=== PATIENT | male | born 1975 | race Hispanic/Latino ===

== ENCOUNTER 2017-09-20 14:41 | Emergency (ER) | payer SELFPAY ==
[2017-09-20 15:15] LABS: APPEARANCE,URINE Clear (CLEAR); BILIRUBIN,URINE Negative (NEGATIVE); COLOR,URINE Yellow (YELLOW); GLUCOSE, URINE (UA) Negative (NEGATIVE); KETONES,URINE Negative (NEGATIVE); LEUKOCYTE ESTERASE ,URINE Large (NEGATIVE); NITRATE,URINE Negative (NEGATIVE); OCCULT BLOOD,URINE Moderate (NEGATIVE); PROTEIN,URINE Negative (NEGATIVE)
[2017-09-20 15:35] LABS: BACTERIA,URINE Few /HPF (None Seen); WBC,URINE 51-100 /HPF (0-1)
[2017-09-20] MEDS ORDERED: AZITHROMYCIN 250 MG TABLET PO ONE (15:59)
[2017-09-20] MEDS ORDERED: CEFTRIAXONE SODIUM 1 GM ONE (15:59)
== END 2017-09-20 16:30 | disposition home or self-care (01) ==
LOC: EDH 14:41
DX: N30.00 Acute cystitis without hematuria (principal)
CPT/HCPCS: 81001; 87486; 87797; 96372; 99284; J0696

== ENCOUNTER 2019-08-21 22:04 | Emergency (ER) | payer OTHER ==
[2019-08-21] MEDS ORDERED: KETOROLAC TROMETHAMINE 60 MG/2 ML VIAL ONE (23:27)
[2019-08-21] MEDS ORDERED: DEXAMETHASONE SOD PHOSPHATE 10MG/ML 1ML VIAL ONE (23:27)
== END 2019-08-21 23:53 | disposition home or self-care (01) ==
LOC: EDH 22:04
DX: M54.42 Lumbago with sciatica, left side (principal); M54.41 Lumbago with sciatica, right side
CPT/HCPCS: 82948; 99282; J1100; J1885

== ENCOUNTER 2020-10-24 08:59 | Emergency (ER) | payer SELFPAY ==
[2020-10-24 09:45] LABS: APPEARANCE,URINE Cloudy (CLEAR); BILIRUBIN,URINE Negative (NEGATIVE); COLOR,URINE Yellow (YELLOW); GLUCOSE, URINE (UA) Negative (NEGATIVE); KETONES,URINE Negative (NEGATIVE); LEUKOCYTE ESTERASE ,URINE Large (NEGATIVE); NITRATE,URINE Negative (NEGATIVE); OCCULT BLOOD,URINE Nonhemolyzed Trace (NEGATIVE); PROTEIN,URINE Negative (NEGATIVE)
[2020-10-24 10:06] LABS: BACTERIA,URINE Rare /HPF (None Seen); RBC,URINE 0-1 /HPF (0-1); WBC,URINE 26-50 /HPF (0-1)
[2020-10-24 10:07] LABS: SQUAMOUS EPITHELIAL CELL,UR 0-2 /HPF (0-2)
[2020-10-24] MEDS ORDERED: CEFTRIAXONE SODIUM 1 GM ONE (10:40)
[2020-10-24] MEDS ORDERED: LIDOCAINE HCL-MPF 1% 2ML VIAL ONE (10:40)
[2020-10-24] MEDS ORDERED: AZITHROMYCIN 250 MG TABLET PO ONE (10:41)
[2020-10-24] MEDS ORDERED: ONDANSETRON ODT 4 MG TAB ONE (10:41)
== END 2020-10-24 11:20 | disposition home or self-care (01) ==
LOC: EDH 08:59
DX: N34.2 Other urethritis (principal); Z72.0 Tobacco use
CPT/HCPCS: 81001; 87088; 87486; 87797; 96372; 99283; J0696; J3490

== ENCOUNTER 2021-09-08 07:29 | Emergency (ER) | payer OTHER ==
[~2021-09-08] VITALS: Ht 172.7 cm; Wt 122.5 kg
[2021-09-08] MEDS ORDERED: IBUPROFEN 600 MG TABLET PO ONE (13:00)
[2021-09-08] MEDS ORDERED: IBUP-2070 PO (13:59)
[2021-09-08 14:21] VITALS: BP 142/90
== END 2021-09-08 14:23 | disposition home or self-care (01) ==
LOC: EDH 07:29
DX: M79.602 Pain in left arm (principal); Z79.1 Long term (current) use of non-steroidal anti-inflammatories (NSAID)
CPT/HCPCS: 73060

== ENCOUNTER 2024-09-23 11:16 | Emergency (ER) | payer OTHER ==
[~2024-09-23] VITALS: Ht 172.7 cm; Wt 131.5 kg
[~2024-09-23 11:16] MED LIST: IBUP-2070 PO
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
[2024-09-23] MEDS ORDERED: CYCL5TAB3 PO (13:28)
[2024-09-23] MEDS: ketOROlac 15MG/ML VIAL (15MG/ML) IM ONE (13:30)
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
[2024-09-23 13:33] VITALS: BP 140/70; PULSE 74; RESP 20; TEMP 98; O2SAT 98
== END 2024-09-23 13:45 | disposition home or self-care (01) ==
LOC: EDH 11:16
DX: S33.9XXA Sprain of unspecified parts of lumbar spine and pelvis, initial encounter (principal); M25.522 Pain in left elbow; M54.2 Cervicalgia; Z79.899 Other long term (current) drug therapy; V89.2XXA Person injured in unspecified motor-vehicle accident, traffic, initial encounter; Y93.89 Activity, other specified; Y92.488 Other paved roadways as the place of occurrence of the external cause; Y99.8 Other external cause status
CPT/HCPCS: 99284; 73060; 72100; 96372; J1885